=== PATIENT | male | born 1990 | race Caucasian/White ===

== ENCOUNTER 2016-09-05 09:41 | Emergency (ER) | payer OTHER ==
[~2016-09-05] VITALS: Ht 180.3 cm; Wt 82.6 kg
[2016-09-05 09:43] VITALS: BP 135/87
[2016-09-05] MEDS ORDERED: LIDOCAINE 1%, 20ML SQ ONE (10:00)
[2016-09-05] MEDS ORDERED: LIDOCAINE 1%, 20ML ONE (10:08)
== END 2016-09-05 10:56 | disposition home or self-care (01) ==
LOC: ED 09:54
DX: L02.412 Cutaneous abscess of left axilla (principal)
CPT/HCPCS: 10060